=== PATIENT | female | born 1970 | race Caucasian/White ===

== ENCOUNTER 2018-06-05 17:37 | Emergency (ER) | payer OTHER ==
[2018-06-05 17:57] VITALS: BP 160/97
--- NOTE | 2018-06-05 21:17 | US ---
Right lower extremity deep venous ultrasound: Duplex and color flow imaging was obtained of the right common femoral, proximal greater saphenous, superficial femoral, popliteal, posterior tibial and peroneal veins. Findings: Intraluminal thrombus is identified within the popliteal vein which is nonoccluding. Other veins show normal phasic flow, augmentation and compression. Left common femoral vein also shows no thrombus. Impression: 1. Nonoccluding clot within the popliteal vein within the right lower extremity. 2. No other findings of deep venous thrombosis seen within the right lower extremity or within the left common femoral vein. Diagnostic code #5
[2018-06-05] MEDS ORDERED: Rivaroxaban 10 MG Tab PO ONE (21:41)
--- NOTE | 2018-06-05 21:48 | EDM.PDOC ---
ED HPI GENERAL MEDICAL PROBLEM - General Chief Complaint: Cardiovascular Problem Stated Complaint: BLOOD CLOT IN RIGHT KNEE Time Seen by Provider: 06/05/18 18:09 Source of Information: Reports: Patient History Limitations: Reports: No Limitations - History of Present Illness INITIAL COMMENTS - FREE TEXT/NARRATIVE: 48-year-old female presents for management of a DVT. Reportedly she had surgery with Dr. Gilman on May 08. She surgery for plantar fasciitis to the right foot. Reports she's had pain and swelling to the leg since surgery. She thought this was normal surgical healing. She saw Dr. Gilman today and had an ultrasound done. Instructed to come to the ER for management of a DVT. She reports pain and swelling in the right leg. reports pain to the right posterior calf. She reports having headaches. She denies any chest pain, shortness breath, cough, lightheadedness, dizziness or syncope. No history of any previous blood clots. Reports a grandmother on anticoagulants but she does not no the reasoning behind the anticoagulants. No known family history of any blood clotting disorders. Patient has a past medical history of seizures. 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 She reports that she's been doing well but she did have one seizure in 2016 and 2016 , prior to that it was 20 years ago. She has been seen her neurologist is instructed that she will be on antiepileptic the remainder of her life. Right Posterior Knee Pain Score (Numeric/FACES): 4 - Related Data Allergies Allergy/AdvReac Type Severity Reaction Status Date / Time No Known Allergies Allergy Verified 06/06/16 18:38 Home Meds: Home Meds Citalopram [Citalopram HBr] 40 mg PO DAILY 05/07/14 [History] lamoTRIgine [Lamotrigine] 100 mg PO BID 10/28/14 [History] levETIRAcetam [Keppra] 500 mg PO DAILY #30 tablet 06/06/16 [Rx] Rivaroxaban [Xarelto] 15 mg PO BID #41 tablet 06/05/18 [Rx] Zolpidem Tartrate [Ambien] 10 mg PO ONCALL PRN 06/05/18 [History] Past Medical History Neurological History: Reports: Seizure Psychiatric History: Reports: Depression - Past Surgical History HEENT Surgical History: Reports: Tonsillectomy Female Surgical History: Reports: Hysterectomy Neurological Surgical History: Reports: C-Spine Social & Family History - Tobacco Use Smoking Status *Q: Never Smoker - Caffeine Use Caffeine Use: Reports: None - Recreational Drug Use Recreational Drug Use: No - Living Situation & Occupation Living situation: Reports: Occupation: Employed ED ROS GENERAL - Review of Systems Review Of Systems: See Below Respiratory: Denies: Shortness of Breath, Cough Cardiovascular: Denies: Chest Pain, Lightheadedness, Syncope Musculoskeletal: Reports: Leg Pain (right leg), Other (reports swellig to the right leg) Skin: Reports: Bruising (right leg) Neurological: Reports: Headache. Denies: Dizziness, Numbness, Syncope, Tingling ED EXAM, GENERAL - Physical Exam Exam: See Below Exam Limited By: No Limitations General Appearance: Alert, WD/WN, No Apparent Distress Respiratory/Chest: No Respiratory Distress, Lungs Clear, Normal Breath Sounds Cardiovascular: Normal Peripheral Pulses, Regular Rate, Rhythm, No Murmur Extremities: Normal Capillary Refill, Vahid's Sign (+ right), Other (swelling to the right lower leg, bruising to the right lower leg) Neurological: Alert, Oriented, Normal Cognition Psychiatric: Normal Affect, Normal Mood Skin Exam: Warm, Dry, Normal Color, Ecchymosis (right lower leg), Wound/ Incision (right medial calf and right heel, well healing, no prurlent material, no drainage) Course - Vital Signs Last Recorded V/S: Last Vital Signs Temp 97.4 F 06/05/18 17:55 Pulse 80 06/05/18 17:55 Resp 20 06/05/18 17:55 BP 160/97 H 06/05/18 17:55 Pulse Ox 99 06/05/18 17:55 - Orders/Labs/Meds Labs: Laboratory Tests 06/05/18 06/05/18 06/05/18 Range/Units 18:51 18:51 18:51 WBC 7.67 (3.98-10.04) K/mm3 RBC 3.83 L (3.98-5.22) M/mm3 Hgb 12.6 (11.2-15.7) gm/L Hct 38.1 (34.1-44.9) % MCV 99.5 H (79.4-94.8) fl MCH 32.9 H (25.6-32.2) pg MCHC 33.1 (32.2-35.5) g/dl RDW Std Deviation 47.0 H (36.4-46.3) fL Plt Count 244 (182-369) K/mm3 MPV 9.8 (9.4-12.3) fl Neut % (Auto) 58.4 (34.0-71.1) % Lymph % (Auto) 29.9 (19.3-51.7) % Stark % (Auto) 9.3 (4.7-12.5) % Eos % (Auto) 2.0 (0.7-5.8) Baso % (Auto) 0.3 (0.1-1.2) % Neut # (Auto) 4.49 (1.56-6.13) K/mm3 Lymph # (Auto) 2.29 (1.18-3.74) K/mm3 Stark # (Auto) 0.71 H (0.24-0.36) K/mm3 Eos # (Auto) 0.15 (0.04-0.36) K/mm3 Baso # (Auto) 0.02 (0.01-0.08) K/mm3 PT 9.4 L (9.5-12.1) SECONDS INR < 0.93 APTT 24 (24-31) SECONDS Sodium 140 (136-145) mEq/L Potassium 3.8 (3.5-5.1) mEq/L Chloride 105 (98-107) mEq/L Carbon Dioxide 26 (21-32) mEq/L Anion Gap 12.8 (5-15) BUN 14 (7-18) mg/dL Creatinine 0.8 (0.55-1.02) mg/dL Est Cr Clr Drug Dosing 85.45 mL/min Estimated GFR (MDRD) > 60 (>60) mL/min BUN/Creatinine Ratio 17.5 (14-18) Glucose 89 (74-106) mg/dL Calcium 9.0 (8.5-10.1) mg/dL Total Bilirubin 0.5 (0.2-1.0) mg/dL AST 20 (15-37) U/L ALT 39 (14-59) U/L Alkaline Phosphatase 73 (46-116) U/L Total Protein 6.9 (6.4-8.2) g/dl Albumin 3.4 (3.4-5.0) g/dl Globulin 3.5 gm/dL Albumin/Globulin Ratio 1.0 (1-2) Meds: Medications Discontinued Medications Generic Name Dose Route Start Last Admin Trade Name Geri PRN Reason Stop Dose Admin Rivaroxaban 15 mg 06/05/18 21:41 06/05/18 21:47 Xarelto PO 06/05/18 21:42 15 mg ONETIME ONE Administration - Radiology Interpretation Free Text/Narrative:: Right lower extremity deep venous ultrasound: Duplex and color flow imaging was obtained of the right common femoral, proximal greater saphenous, superficial femoral, popliteal, posterior tibial and peroneal veins. Findings: Intraluminal thrombus is identified within the popliteal vein which is nonoccluding. Other veins show normal phasic flow, augmentation and compression. Left common femoral vein also shows no thrombus. Impression: 1. Nonoccluding clot within the popliteal vein within the right lower extremity. 2. No other findings of deep venous thrombosis seen within the right lower extremity or within the left common femoral vein. - Re-Assessments/Exams Free Text/Narrative Re-Assessment/Exam: 06/05/18 20:19 Obtained labs. [facility] has sent over the radiology disc but we are unable to open this for evaluation. Contacted [place] and unfortunately due to power outage and other problems they are unable to send images and they were unable to get formal radiology read. The tech who did the ultrasound felt that she had a DVT and was told to send her here if this is likely. While I do feel that the tech is likely correct I'm unable to see the images and without any formal radiology read would feel more comfortable getting a confirmation test done here. Will order an ultrasound for further evaluation. 06/05/18 21:40 Reviewed the ultrasound report with the patient. Will start on Xarelto for DVT treatment. Did discuss the risk and benefits of the newer agents versus Coumadin ultimately decided to go with a new agent. We'll start Xarelto. Follow- up with her family practice provider for further management. Return precautions given. Reviewed the labs with the patient. Discharge instruction as documented. Departure - Departure Time of Disposition: 21:41 Disposition: Home, Self-Care 01 Condition: Fair Clinical Impression: DVT (deep venous thrombosis) Prescriptions: Rivaroxaban [Xarelto] 15 mg PO BID #41 tablet Instructions: Deep Vein Thrombosis Referrals: Kalina,Nasim J II, DPM [Primary Care Provider] - Sandra Johnson PA-C [Ordering Only Provider] - Forms: ED Department Discharge Additional Instructions: xarelto 1 tab twice a day. Take the 15 mg twice a day for 21 days. your first dose was given in the ER. Start your prescription. After 21 days he will then be switched to 20 mg by mouth daily. you will likely need anticoagulation for 3 months. Please follow-up with your primary care provider within one week for recheck of your symptoms. Also please inquire about the 20 mg dosage for the next 3 months. May take your pain medication that you have at home as needed for pain. Rest. Do not overexert yourself. Follow-up with your primary care provider within one week for recheck of your symptoms and xarelto refill. Please return to ER for symptoms change or worsen. In particular we would like to see you for any severe chest pain, severe shortness of breath, lightheadedness, dizziness or syncope.
== END 2018-06-05 21:56 | disposition home or self-care (01) ==
LOC: SUPCPDRO 17:37 → JD.ED 17:37
DX: I82.431 Acute embolism and thrombosis of right popliteal vein (principal); S80.11XA Contusion of right lower leg, initial encounter; Z79.899 Other long term (current) drug therapy; Z79.01 Long term (current) use of anticoagulants; X58.XXXA Exposure to other specified factors, initial encounter
CPT/HCPCS: 36415; 80053; 85025; 85610; 85730; 93971; 99284; A9270